=== PATIENT | female | born 1940 | race Caucasian/White ===

== ENCOUNTER 2021-05-06 14:00 | Outpatient (CLI) | payer MEDICARE ==
[~2021-05-06 14:00] MED LIST: AMLO2.5T2 PO; LOSA50TA3 PO
[2021-05-06 14:03] LABS: ALBUMIN 3.1 G/DL (3.4-5.0); ALBUMIN/GLOBULIN RATIO 0.7 (1.1-1.5); ALKALINE PHOSPHATASE 125 IU/L (46-116); BLOOD UREA NITROGEN 17 MG/DL (7-18); BUN/CREATININE RATIO 15.5 (6.6-38.0); CALCIUM 9.1 MG/DL (8.5-10.1); CHLORIDE 106 MMOL/L (99-107); PRE OP ALT 14 U/L (30-65); PRE OP ANION GAP 8 (8-16); PRE OP AST 14 U/L (10-37); PRE OP BILIRUB, TOTAL 0.5 MG/DL (0.0-1.0); PRE OP GLUCOSE 102 MG/DL (70-104); PRE OP POTASSIUM 4.4 MMOL/L (3.4-5.1); PRE OP SODIUM 141 MMOL/L (135-145); TOTAL CARBON DIOXIDE 26.8 MMOL/L (24-32); TOTAL PROTEIN 7.5 G/DL (6.4-8.2); eGFR 48 ML/MIN
[2021-05-06 14:06] LABS: BASOPHILS % (AUTO) 0.6 % (0-1); EOSINOPHILS # (AUTO) 0.3 X10'3 (0-0.9); EOSINOPHILS % (AUTO) 4.2 % (0-6); LYMPHOCYTES # (AUTO) 1.2 X10'3 (1.1-4.8); LYMPHOCYTES % (AUTO) 19.7 % (21-51); MEAN CORPUSCULAR HGB CONC 32.2 g/dL (33.0-36.5); MEAN CORPUSCULAR VOLUME 87.1 FL (78-98); MEAN PLATELET VOLUME 7.3 FL (7.4-10.4); MONOCYTES # (AUTO) 0.6 X10'3 (0-0.9); MONOCYTES % (AUTO) 9.5 % (2-12); NEUTROPHILS # (AUTO) 4.1 X10'3 (1.8-7.7); PRE OP HEMATOCRIT 37.4 % (35.0-45.0); PRE OP PLATELET COUNT 317 X10'3 (140-440); RED BLOOD COUNT 4.29 X10'6 (4.20-5.60); RED CELL DISTRIBUTION WIDTH 15.3 % (11.5-14.5)
== END 2021-05-06 23:59 | disposition home or self-care (01) ==
LOC: PRE-OP 14:00 → EDSTATUS 05-08 12:00
PROVIDERS: ATTEND Orthopaedic Surgery
DX: S42.292A Other displaced fracture of upper end of left humerus, initial encounter for closed fracture (principal); R94.31 Abnormal electrocardiogram [ECG] [EKG]; X58.XXXA Exposure to other specified factors, initial encounter; Y93.89 Activity, other specified; Y92.89 Other specified places as the place of occurrence of the external cause; Y99.8 Other external cause status
CPT/HCPCS: 36415; 80053; 85025; 87081; 87635; 93005

== ENCOUNTER 2021-05-29 08:50 | Outpatient (CLI) | payer MEDICARE ==
[~2021-05-29] VITALS: Ht 152.4 cm; Wt 72.6 kg
[2021-05-29 10:02] LABS: LYMPHOCYTES # (AUTO) 1.3 X10'3 (1.1-4.8); MONOCYTES # (AUTO) 0.5 X10'3 (0-0.9); RED CELL DISTRIBUTION WIDTH 14.4 % (11.5-14.5)
[2021-05-29 10:06] LABS: BASOPHILS % (AUTO) 0.9 % (0-1); EOSINOPHILS # (AUTO) 0.3 X10'3 (0-0.9); EOSINOPHILS % (AUTO) 5.7 % (0-6); LYMPHOCYTES % (AUTO) 24.5 % (21-51); MEAN CORPUSCULAR HEMOGLOBIN 28.1 PG (27.0-31.0); MEAN CORPUSCULAR VOLUME 84.9 FL (78-98); MONOCYTES % (AUTO) 10.6 % (2-12); NEUTROPHILS % (AUTO) 58.3 % (42-75); PRE OP HEMATOCRIT 34.8 % (35.0-45.0); PRE OP HEMOGLOBIN 11.5 g/dL (12.0-16.0); PRE OP PLATELET COUNT 196 X10'3 (140-440)
[2021-05-29 10:19] LABS: ALBUMIN 2.8 G/DL (3.4-5.0); ALBUMIN/GLOBULIN RATIO 0.7 (1.1-1.5); ALKALINE PHOSPHATASE 86 IU/L (46-116); BLOOD UREA NITROGEN 13 MG/DL (7-18); BUN/CREATININE RATIO 16.3 (6.6-38.0); CALCIUM 8.8 MG/DL (8.5-10.1); CHLORIDE 104 MMOL/L (99-107); PRE OP ALT 15 U/L (30-65); PRE OP ANION GAP 9 (8-16); PRE OP AST 16 U/L (10-37); PRE OP BILIRUB, TOTAL 0.3 MG/DL (0.0-1.0); PRE OP GLUCOSE 96 MG/DL (70-104); PRE OP POTASSIUM 3.7 MMOL/L (3.4-5.1); PRE OP SODIUM 139 MMOL/L (135-145); TOTAL CARBON DIOXIDE 25.8 MMOL/L (24-32); TOTAL PROTEIN 7.1 G/DL (6.4-8.2); eGFR 69 ML/MIN
[2021-05-29] MEDS ORDERED: ASPI-1264 PO (10:25)
[2021-06-02] MEDS ORDERED: ringers solution, lacted 1,000 ML IV SCH (05:00)
[2021-06-02] MEDS ORDERED: famotidine 20mg tablet PO ONE (05:30)
[2021-06-23] MEDS ORDERED: AMLO5TAB PO (10:50)
[2021-06-23] MEDS ORDERED: ASPI-611 PO (10:50)
[2021-06-24] MEDS ORDERED: HYDR-3972 (10:24)
== END 2021-05-29 23:59 | disposition home or self-care (01) ==
LOC: PRE-OP 08:50 → EDSTATUS 06-24 13:45
PROVIDERS: ATTEND Orthopaedic Surgery
DX: Z01.818 Encounter for other preprocedural examination (principal); M19.012 Primary osteoarthritis, left shoulder; M75.122 Complete rotator cuff tear or rupture of left shoulder, not specified as traumatic; M25.512 Pain in left shoulder; M75.121 Complete rotator cuff tear or rupture of right shoulder, not specified as traumatic; Z96.611 Presence of right artificial shoulder joint
CPT/HCPCS: 36415; 80053; 85025; 87081

== ENCOUNTER 2021-12-01 05:36 | Day surgery (SDC) | payer MEDICARE ==
[2021-11-27 14:01] LABS: BASOPHILS % (AUTO) 0.8 % (0-1); EOSINOPHILS # (AUTO) 0.2 X10'3 (0-0.9); EOSINOPHILS % (AUTO) 4.5 % (0-6); LYMPHOCYTES # (AUTO) 1.5 X10'3 (1.1-4.8); LYMPHOCYTES % (AUTO) 29.1 % (21-51); MEAN CORPUSCULAR HEMOGLOBIN 28.4 PG (27.0-31.0); MEAN CORPUSCULAR HGB CONC 33.3 g/dL (33.0-36.5); MEAN CORPUSCULAR VOLUME 85.2 FL (78-98); MEAN PLATELET VOLUME 7.9 FL (7.4-10.4); MONOCYTES # (AUTO) 0.4 X10'3 (0-0.9); MONOCYTES % (AUTO) 8.4 % (2-12); NEUTROPHILS # (AUTO) 2.9 X10'3 (1.8-7.7); NEUTROPHILS % (AUTO) 57.2 % (42-75); PRE OP HEMATOCRIT 36.1 % (35.0-45.0); PRE OP PLATELET COUNT 142 X10'3 (140-440); RED BLOOD COUNT 4.23 X10'6 (4.20-5.60)
[2021-11-27 14:13] LABS: ALBUMIN 3.4 G/DL (3.4-5.0); ALBUMIN/GLOBULIN RATIO 0.8 (1.1-1.5); ALKALINE PHOSPHATASE 101 IU/L (46-116); BLOOD UREA NITROGEN 20 MG/DL (7-18); BUN/CREATININE RATIO 20.2 (6.6-38.0); CALCIUM 9.1 MG/DL (8.5-10.1); CHLORIDE 106 MMOL/L (99-107); CREATININE 0.99 MG/DL (0.40-0.90); PRE OP ALT 15 U/L (30-65); PRE OP ANION GAP 7 (8-16); PRE OP AST 26 U/L (10-37); PRE OP BILIRUB, TOTAL 0.4 MG/DL (0.0-1.0); PRE OP GLUCOSE 95 MG/DL (70-104); PRE OP POTASSIUM 4.1 MMOL/L (3.4-5.1); PRE OP SODIUM 141 MMOL/L (135-145); TOTAL CARBON DIOXIDE 28.1 MMOL/L (24-32); TOTAL PROTEIN 7.5 G/DL (6.4-8.2); eGFR 54 ML/MIN
[~2021-12-01] VITALS: Ht 165.1 cm; Wt 59.0 kg
[2021-12-01] VITALS (13 sets, daily range): BP systolic 129–153; BP diastolic 62–72
[~2021-12-01 05:36] MED LIST changes: -AMLO2.5T2 PO; +AMLO5TAB PO; +ASPI-1071 PO; +famotidine 20mg tablet PO ONE; +ringers solution, lacted 1,000 ML IV SCH
[2021-12-01] MEDS ORDERED: fentaNYL/PF 50MCG/1 ML 2ML syringe ONE (07:08)
[2021-12-01] MEDS ORDERED: midazolam 1 mg/ML 2ml injection ONE (07:08)
[2021-12-01] MEDS ORDERED: ROPIVAcaine 0.5% (5mg/ml) 30ml vial ONE ×2 (07:11→09:24)
[2021-12-01] MEDS ORDERED: triamcinolone acetonide 40mg/ml inj ONE (09:24)
--- NOTE | 2021-12-01 09:44 | NUR ---
Pt received from OR via eun Addendum: 12/01/21 at 1002 by Micah Armenta RN carissa, accompanied by SENIOR UI WEB DEVELOPER and eze. Pt arrives aaox4, arouses to stimulation, verbally responsive, 0/10 pain, VSS. Band aide covering insertion site. Pt's BUE warm to touch.
[2021-12-01] MEDS ORDERED: propofol inj 20 ML IV ONE (09:47)
[2021-12-01] MEDS ORDERED: ringers solution, lacted 1,000 ML IV SCH (10:05)
[2021-12-01] MEDS ORDERED: morphine 4 MG/ML inj SYRINge IV PRN (10:05)
[2021-12-01] MEDS ORDERED: proCHLORperazine 10 MG/2 ml inj IV PRN (10:05)
[2021-12-01] MEDS ORDERED: morphine 2 MG/ML inj. syringe IV PRN (10:05)
[2021-12-01] MEDS ORDERED: meperidine/PF 25mg/ml syringe IV PRN ×3 (10:05)
[2021-12-01] MEDS ORDERED: ondansetron/PF 4mg/2ml inj IV PRN (10:05)
[2021-12-01] MEDS ORDERED: HYDROcodone/acetaminophen 10/325mg tab PO PRN (10:35)
--- NOTE | 2021-12-01 11:34 | NUR ---
pt discharged home via wheelchair to son's POV without incident. steady narrow gait, independent in ambulation. No complaints, pt aware of dc poc and follow up. Pt left arm in sling, understands sling use and powder pack use. Sent home with pt. Addendum: 12/01/21 at 1150 by Micah Armenta RN Amended: Links added.
== END 2021-12-01 11:34 | disposition home or self-care (01) ==
LOC: PAS 05:36
PROVIDERS: ATTEND Orthopaedic Surgery
DX: T84.82XA Fibrosis due to internal orthopedic prosthetic devices, implants and grafts, initial encounter (principal); J44.9 Chronic obstructive pulmonary disease, unspecified; I10 Essential (primary) hypertension; G89.18 Other acute postprocedural pain; M19.90 Unspecified osteoarthritis, unspecified site; Z79.899 Other long term (current) drug therapy; Z79.82 Long term (current) use of aspirin; Z90.710 Acquired absence of both cervix and uterus; Z98.890 Other specified postprocedural states; Z87.891 Personal history of nicotine dependence; Z20.822 Contact with and (suspected) exposure to COVID-19; Y83.8 Other surgical procedures as the cause of abnormal reaction of the patient, or of later complication, without mention of misadventure at the time of the procedure; Y92.89 Other specified places as the place of occurrence of the external cause
CPT/HCPCS: 20610; 23700; 36415; 64415; 76942; 80053; 82948; 85025; 87635; 93005; C9803; J2250; J2704; J2795; J3010; J3301; J7120; Z7506; Z7512; A4618